=== PATIENT | female | born 1990 | race Caucasian/White ===

== ENCOUNTER 2017-11-24 13:56 | Emergency (ER) | payer OTHER ==
[2017-11-24 15:45] LABS: Appearance,Urine Clear (Clear); Bilirubin,Urine Negative (Negative); Blood,Urine Negative (Negative); Color,Urine Yellow; Glucose,Urine (UA) Negative (Negative); Ketones,Urine Negative (Negative); Leukocyte Esterase,Urine Negative (Negative); Nitrite,Urine Negative (Negative); PH, Urine 5.5 (5.0-8.0); Protein,Urine Negative (Negative); Specific Gravity,Urine 1.008 (1.001-1.035); Urobilinogen,Urine <2.0 mg/dL (<2.0)
[2017-11-24 15:46] LABS: Basophils # (A) 0.1 k/uL (0-0.2); Basophils % (A) 1 %; Eosinophils # (A) 0.1 k/uL (0-0.7); Eosinophils % (A) 1 %; HCT 41.9 % (34.0-46.0); HGB 14.2 gm/dL (11.4-16.0); Lymphocytes # (A) 1.7 k/uL (1.0-4.8); Lymphocytes % (A) 21 %; MCH 32.2 pg (25.0-35.0); MCHC 33.8 g/dL (31.0-37.0); MCV 95.5 fL (80.0-100.0); Monocytes # (A) 0.5 k/uL (0-1.0); Monocytes % (A) 7 %; Neutrophils # (A) 5.6 k/uL (1.3-7.7); Neutrophils % (A) 69 %; Platelet Count 235 k/uL (150-450); RBC 4.39 m/uL (3.80-5.40); RDW 13.5 % (11.5-15.5); WBC 8.2 k/uL (3.8-10.6)
[2017-11-24 15:51] LABS: ALT 32 U/L (9-52); AST 24 U/L (14-36); Albumin 4.3 g/dL (3.5-5.0); Alkaline Phosphatase 75 U/L (38-126); Anion Gap 12 mmol/L; Blood Urea Nitrogen 9 mg/dL (7-17); Calcium 9.4 mg/dL (8.4-10.2); Carbon Dioxide 22 mmol/L (22-30); Chloride 107 mmol/L (98-107); Glucose 90 mg/dL (74-99); Potassium 4.3 mmol/L (3.5-5.1); Sodium 141 mmol/L (137-145); Total Bilirubin 0.5 mg/dL (0.2-1.3)
[2017-11-24 15:52] LABS: Partial Thromboplastin Time 24.7 sec (22.0-30.0)
--- NOTE | 2017-11-24 16:59 | US ---
EXAMINATION TYPE: Transabdominal DATE OF EXAM: 10/25/17 COMPARISON: NONE CLINICAL HISTORY: Patient 6weeks 3 days by LMP, had ultrasound today and [facility] and no IUP could be identified. Patient sent here to rule out ectopic EXAM PERFORMED: Transvaginal (TV) and Transabdominal (TA) EXAM MEASUREMENTS: GESTATIONAL AGE / DATING Physician Established: Not yet established ( weeks/ days) EDC: Dates by LMP: (6 weeks/3 days) EDC: 07/17/18 Dates by First Scan: No previous this is first scan Dates by Current Scan for: Unable to date by today's study MATERNAL ANATOMY Uterus: 7.8 x 4.4 x 4.1cm, endometrium heterogeneous, difficult to ascertain borders, believed to be thickened measuring 2.5cm Right Ovary: 2.3 x 1.7 x 2.1cm Left Ovary: not identified by today's ultrasound Post CDS / Adnexa: wnl Presence of free fluid: no Presence of corpus luteal cyst: no Presence of subchorionic bleed: no GESTATION / SURVEY IUP: No IUP seen at this time Date of LMP: 10/10/17 Beta HcG (if available): 356 Patient of large body habitus. IMPRESSION: Endometrium is difficult to visualized but appear to be heterogeneous. No definite intrauterine pregn boyd. Finding is nonspecific. Correlate with serial beta hCG and pelvic ultrasound. Differential diag nosis would include normal too early to detect. Missed or ectopic also i n the differential diagnosis.
--- NOTE | 2017-11-24 17:12 | ED ---
General Adult HPI - General Chief complaint: Recheck/Abnormal Lab/Rx Stated complaint: poss ectopic Time Seen by Provider: 11/24/17 14:42 Source: patient, RN notes reviewed Mode of arrival: ambulatory Limitations: no limitations - History of Present Illness Initial comments: This a 27-year-old female presents emergency department to complaint of . Patient states that she took a test 3 weeks ago which was positive. She states she did ask he took 6 at that time. She states that she follow-up with an clinic today because she had severe compilations with her first and does not want to be . Patient states she has no abdominal pain, bleeding or cramping at this time. Patient states that they cannot find intrauterine on ultrasound and sent here to rule out ectopic. Patient states that she's had no other prior workup for this . She states her prior was 11 years ago. Patient denies any nausea, vomiting diarrhea constipation. Denies any chest pain. - Related Data Home Medications Medication Instructions Recorded Confirmed No Known Home Medications [No 11/24/17 11/24/17 Known Home Medications] Allergies Allergy/AdvReac Type Severity Reaction Status Date / Time No Known Allergies Allergy Verified 11/24/17 14:39 Review of Systems ROS Statement: Those systems with pertinent positive or pertinent negative responses have been documented in the HPI. ROS Other: All systems not noted in ROS Statement are negative. Past Medical History Past Medical History: No Reported History History of Any Multi-Drug Resistant Organisms: None Reported Past Surgical History: Orthopedic Surgery Past Psychological History: No Psychological Hx Reported Smoking Status: Current every day smoker Past Alcohol Use History: None Reported Past Drug Use History: None Reported General Exam Limitations: no limitations General appearance: alert, in no apparent distress Head exam: Present: atraumatic, normocephalic, normal inspection Eye exam: Present: normal appearance, PERRL, EOMI. Absent: scleral icterus, conjunctival injection, periorbital swelling Respiratory exam: Present: normal lung sounds bilaterally. Absent: respiratory distress, wheezes, rales, rhonchi, stridor Cardiovascular Exam: Present: regular rate, normal rhythm, normal heart sounds. Absent: systolic murmur, diastolic murmur, rubs, gallop, clicks GI/Abdominal exam: Present: soft, normal bowel sounds. Absent: distended, tenderness, guarding, rebound, rigid Back exam: Absent: CVA tenderness (R), CVA tenderness (L) Skin exam: Present: warm, dry, intact, normal color. Absent: rash Course Vital Signs 11/24/17 13:59 Temperature 98.1 F Pulse Rate 99 Respiratory 20 Rate Blood Pressure 145/96 O2 Sat by Pulse 98 Oximetry Medical Decision Making - Medical Decision Making 27-year-old female presented for concerns for possible ectopic. Patient has no abdominal pain, flank pain or back pain. Patient's hCG is currently 350. Patient had ultrasound which did not show IUP though her hCG is only 350. Patient has no pain consistent with ectopic. Patient may be having a missed versus early . Patient will follow-up return parameters were discussed. - Lab Data Result diagrams: 11/24/17 15:11 11/24/17 15:11 Lab Results 11/24/17 11/24/17 11/24/17 Range/Units 15:11 15:11 15:11 WBC 8.2 (3.8-10.6) k/uL RBC 4.39 (3.80-5.40) m/uL Hgb 14.2 (11.4-16.0) gm/dL Hct 41.9 (34.0-46.0) % MCV 95.5 (80.0-100.0) fL MCH 32.2 (25.0-35.0) pg MCHC 33.8 (31.0-37.0) g/dL RDW 13.5 (11.5-15.5) % Plt Count 235 (150-450) k/uL Neutrophils % 69 % Lymphocytes % 21 % Monocytes % 7 % Eosinophils % 1 % Basophils % 1 % Neutrophils # 5.6 (1.3-7.7) k/uL Lymphocytes # 1.7 (1.0-4.8) k/uL Monocytes # 0.5 (0-1.0) k/uL Eosinophils # 0.1 (0-0.7) k/uL Basophils # 0.1 (0-0.2) k/uL PT (9.0-12.0) sec INR (<1.2) APTT (22.0-30.0) sec Sodium 141 (137-145) mmol/L Potassium 4.3 (3.5-5.1) mmol/L Chloride 107 (98-107) mmol/L Carbon Dioxide 22 (22-30) mmol/L Anion Gap 12 mmol/L BUN 9 (7-17) mg/dL Creatinine 0.96 (0.52-1.04) mg/dL Est GFR (CKD-EPI)AfAm >90 (>60 ml/min/1.73 sqM) Est GFR (CKD-EPI)NonAf 81 (>60 ml/min/1.73 sqM) Glucose 90 (74-99) mg/dL Calcium 9.4 (8.4-10.2) mg/dL Total Bilirubin 0.5 (0.2-1.3) mg/dL AST 24 (14-36) U/L ALT 32 (9-52) U/L Alkaline Phosphatase 75 (38-126) U/L Total Protein 7.0 (6.3-8.2) g/dL Albumin 4.3 (3.5-5.0) g/dL HCG, Quant mIU/mL Urine Color Urine Appearance (Clear) Urine pH (5.0-8.0) Ur Specific [place] (1.001-1.035) Urine Protein (Negative) Urine Glucose (UA) (Negative) Urine Ketones (Negative) Urine Blood (Negative) Urine Nitrite (Negative) Urine Bilirubin (Negative) Urine Urobilinogen (<2.0) mg/dL Ur Leukocyte Esterase (Negative) Blood Type O Positive Blood Type Recheck No 11/24/17 11/24/17 11/24/17 Range/Units 15:11 15:11 15:11 WBC (3.8-10.6) k/uL RBC (3.80-5.40) m/uL Hgb (11.4-16.0) gm/dL Hct (34.0-46.0) % MCV (80.0-100.0) fL MCH (25.0-35.0) pg MCHC (31.0-37.0) g/dL RDW (11.5-15.5) % Plt Count (150-450) k/uL Neutrophils % % Lymphocytes % % Monocytes % % Eosinophils % % Basophils % % Neutrophils # (1.3-7.7) k/uL Lymphocytes # (1.0-4.8) k/uL Monocytes # (0-1.0) k/uL Eosinophils # (0-0.7) k/uL Basophils # (0-0.2) k/uL PT 10.0 (9.0-12.0) sec INR 1.0 (<1.2) APTT 24.7 (22.0-30.0) sec Sodium (137-145) mmol/L Potassium (3.5-5.1) mmol/L Chloride (98-107) mmol/L Carbon Dioxide (22-30) mmol/L Anion Gap mmol/L BUN (7-17) mg/dL Creatinine (0.52-1.04) mg/dL Est GFR (CKD-EPI)AfAm (>60 ml/min/1.73 sqM) Est GFR (CKD-EPI)NonAf (>60 ml/min/1.73 sqM) Glucose (74-99) mg/dL Calcium (8.4-10.2) mg/dL Total Bilirubin (0.2-1.3) mg/dL AST (14-36) U/L ALT (9-52) U/L Alkaline Phosphatase (38-126) U/L Total Protein (6.3-8.2) g/dL Albumin (3.5-5.0) g/dL HCG, Quant 356.9 mIU/mL Urine Color Yellow Urine Appearance Clear (Clear) Urine pH 5.5 (5.0-8.0) Ur Specific [place] 1.008 (1.001-1.035) Urine Protein Negative (Negative) Urine Glucose (UA) Negative (Negative) Urine Ketones Negative (Negative) Urine Blood Negative (Negative) Urine Nitrite Negative (Negative) Urine Bilirubin Negative (Negative) Urine Urobilinogen <2.0 (<2.0) mg/dL Ur Leukocyte Esterase Negative (Negative) Blood Type Blood Type Recheck Disposition Clinical Impression: Disposition: HOME SELF-CARE Condition: Stable Instructions: (ED) Additional Instructions: Please return to the Emergency Department if symptoms worsen or any other concerns. Is patient prescribed a controlled substance at d/c from ED?: No Referrals: Kai Robertson DO [Primary Care Provider] - 1-2 days Time of Disposition: 17:12
[2017-11-24 17:29] VITALS: BP 129/73; PULSE 69; RESP 18; TEMP 97.9
== END 2017-11-24 17:35 | disposition home or self-care (01) ==
LOC: EC 13:56
DX: Z32.01 Encounter for pregnancy test, result positive (principal); O99.330 Smoking (tobacco) complicating pregnancy, unspecified trimester; F17.200 Nicotine dependence, unspecified, uncomplicated; Z3A.00 Weeks of gestation of pregnancy not specified
CPT/HCPCS: 36415; 76801; 76817; 80053; 81003; 84702; 85025; 85610; 85730; 86900; 86901; 99282

== ENCOUNTER → 2017-11-26 | Outpatient (CLI) | payer OTHER | END | disposition home or self-care (01) | LOC: LABMAIN 14:27 | PROVIDERS: ATTEND Internal Medicine | DX: Z53.9 Procedure and treatment not carried out, unspecified reason (principal) ==

== ENCOUNTER 2017-12-10 16:11 | Emergency (ER) | payer OTHER ==
[2017-12-10] MEDS ORDERED: SODIUM CHLORIDE 0.9% 1,000 ML IV STA (16:43)
--- NOTE | 2017-12-10 16:48 | ED ---
Abdominal Pain HPI - General Chief Complaint: Abdominal Pain Stated Complaint: Abd Pain 6 weeks Time Seen by Provider: 12/10/17 16:25 Source: patient Mode of arrival: ambulatory Limitations: no limitations - History of Present Illness Initial Comments: Patient is a 27-year-old female presenting for abdominal pain and vaginal bleeding. She states that she was seen 2 weeks ago because she had a difficult her first time around and found out shortly before this that she was and was seen at a clinic and they were concerned about ectopic . They sent her here and she states that she was told that her beta hCG was 556 and fetus was not visualized. This morning, she started having heavy bleeding as well as abdominal cramping but there is no bleeding now. The cramping is been constant and located in her lower abdomen. She denies any urinary symptoms and vomiting or diarrhea but admits to nausea. 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 Constitutional: Negative for chills, fatigue and fever. HENT: Negative for congestion. Respiratory: Negative for chest tightness, shortness of breath and wheezing. Negative for cough Cardiovascular: Negative for chest pain and palpitations. Gastrointestinal: Positive for abdominal pain and nausea . Negative for abdominal distention, diarrhea, and vomiting. Genitourinary: Negative for dysuria. Positive for vaginal bleeding Musculoskeletal: Negative for back pain, neck pain and neck stiffness. Skin: Negative for color change. Neurological: Negative for dizziness, speech difficulty, weakness and light- headedness. Psychiatric/Behavioral: Negative for agitation and confusion. The patient is not nervous/anxious. ROS Other: All systems not noted in ROS Statement are negative. Past Medical History Past Medical History: No Reported History History of Any Multi-Drug Resistant Organisms: None Reported Past Surgical History: Orthopedic Surgery Past Psychological History: No Psychological Hx Reported Smoking Status: Current every day smoker Past Alcohol Use History: None Reported Past Drug Use History: None Reported General Exam - General Exam Comments Initial Comments: Constitutional: Pt is oriented to person, place, and time. Pt appears well- developed and well-nourished. No distress. HENT: Head: Normocephalic and atraumatic. Eyes: EOM are normal. Neck: Normal range of motion. Neck supple. Cardiovascular: Normal rate, regular rhythm, S1 normal, S2 normal and normal heart sounds. Exam reveals no gallop and no friction rub. No murmur heard. Pulmonary/Chest: Effort normal and breath sounds normal. No tachypnea and no bradypnea. No respiratory distress. No wheezes or rales noted. Abdominal: Soft. Bowel sounds are normal. Pt exhibits no shifting dullness, no distension, no pulsatile liver, no fluid wave, no abdominal bruit and no ascites. There is no tenderness. There is no rigidity, no rebound, no guarding, no tenderness at McBurney's point and negative Loco's sign. Musculoskeletal: Normal range of motion. : Cervical os open approximate 1 cm. There is no adnexal tenderness or significant's cervical motion tenderness. There is mild tenderness to palpation of the suprapubic region on bimanual exam. There is dark blood in the vaginal canal with no evidence of hemorrhage Neurological: Pt is alert and oriented to person, place, and time. No cranial nerve deficit. Skin: Skin is warm and dry. No rash noted. Pt is not diaphoretic. No erythema. No pallor. Psychiatric: Pt has a normal mood and affect. Pt behavior is normal. Thought content normal. Limitations: no limitations Course Vital Signs 12/10/17 12/10/17 12/10/17 16:18 18:58 19:10 Temperature 98.1 F 97.8 F Pulse Rate 82 79 87 Respiratory 20 18 18 Rate Blood Pressure 131/79 112/71 136/72 O2 Sat by Pulse 100 99 99 Oximetry 12/10/17 20:37 Temperature Pulse Rate 84 Respiratory 18 Rate Blood Pressure 145/90 O2 Sat by Pulse 95 Oximetry Medical Decision Making - Medical Decision Making Laboratory studies showed that there was no evidence of leukocytosis and electrolytes were relatively within normal limits. Beta hCG was measured at 3412 and urinalysis was negative for infection. Gestational sac was seen on transvaginal ultrasound with no yolk sac was seen. Vascular flow was seen to both ovaries. Obstetrics on-call was contacted and case was discussed with Dr. Rodriguez. Based on the physical exam findings as well as labs, it was felt that ectopic was less likely. This is discussed with the patient and placement in the Hospital was offered versus follow-up as outpatient and patient elected to see obstetrics doctor within the next 1-2 days. Additionally , it was recommended by OB that the patient come back in 24 hours for repeat beta hCG. Patient was agreeable to do this and given the necessary paperwork. Prior to discharge, the patient was in no acute distress and noted to be resting in bed comfortably. - Lab Data Result diagrams: 12/10/17 17:10 12/10/17 17:10 Lab Results 12/10/17 12/10/17 12/10/17 Range/Units 17:10 17:10 17:10 WBC 7.6 (3.8-10.6) k/uL RBC 4.37 (3.80-5.40) m/uL Hgb 14.1 (11.4-16.0) gm/dL Hct 42.3 (34.0-46.0) % MCV 96.7 (80.0-100.0) fL MCH 32.3 (25.0-35.0) pg MCHC 33.4 (31.0-37.0) g/dL RDW 13.6 (11.5-15.5) % Plt Count 237 (150-450) k/uL Neutrophils % 61 % Lymphocytes % 26 % Monocytes % 7 % Eosinophils % 3 % Basophils % 1 % Neutrophils # 4.6 (1.3-7.7) k/uL Lymphocytes # 2.0 (1.0-4.8) k/uL Monocytes # 0.5 (0-1.0) k/uL Eosinophils # 0.3 (0-0.7) k/uL Basophils # 0.0 (0-0.2) k/uL PT 10.2 (9.0-12.0) sec INR 1.0 (<1.2) APTT 24.7 (22.0-30.0) sec Sodium 142 (137-145) mmol/L Potassium 4.3 (3.5-5.1) mmol/L Chloride 108 H (98-107) mmol/L Carbon Dioxide 22 (22-30) mmol/L Anion Gap 12 mmol/L BUN 11 (7-17) mg/dL Creatinine 0.98 (0.52-1.04) mg/dL Est GFR (CKD-EPI)AfAm >90 (>60 ml/min/1.73 sqM) Est GFR (CKD-EPI)NonAf 79 (>60 ml/min/1.73 sqM) Glucose 83 (74-99) mg/dL Calcium 9.2 (8.4-10.2) mg/dL Magnesium 1.9 (1.6-2.3) mg/dL Total Bilirubin 0.6 (0.2-1.3) mg/dL AST 25 (14-36) U/L ALT 31 (9-52) U/L Alkaline Phosphatase 65 (38-126) U/L Total Protein 6.9 (6.3-8.2) g/dL Albumin 4.3 (3.5-5.0) g/dL Lipase 40 (23-300) U/L HCG, Qual Detected HCG, Quant 3412.0 mIU/mL Urine Color Urine Appearance (Clear) Urine pH (5.0-8.0) Ur Specific [place] (1.001-1.035) Urine Protein (Negative) Urine Glucose (UA) (Negative) Urine Ketones (Negative) Urine Blood (Negative) Urine Nitrite (Negative) Urine Bilirubin (Negative) Urine Urobilinogen (<2.0) mg/dL Ur Leukocyte Esterase (Negative) Urine RBC (0-5) /hpf Urine WBC (0-5) /hpf Ur Squamous Epith Cells (0-4) /hpf Urine Bacteria (None) /hpf Urine Mucus (None) /hpf Blood Type Blood Type Recheck Antibody Screen Spec Expiration Date 12/10/17 12/10/17 Range/Units 17:10 20:39 WBC (3.8-10.6) k/uL RBC (3.80-5.40) m/uL Hgb (11.4-16.0) gm/dL Hct (34.0-46.0) % MCV (80.0-100.0) fL MCH (25.0-35.0) pg MCHC (31.0-37.0) g/dL RDW (11.5-15.5) % Plt Count (150-450) k/uL Neutrophils % % Lymphocytes % % Monocytes % % Eosinophils % % Basophils % % Neutrophils # (1.3-7.7) k/uL Lymphocytes # (1.0-4.8) k/uL Monocytes # (0-1.0) k/uL Eosinophils # (0-0.7) k/uL Basophils # (0-0.2) k/uL PT (9.0-12.0) sec INR (<1.2) APTT (22.0-30.0) sec Sodium (137-145) mmol/L Potassium (3.5-5.1) mmol/L Chloride (98-107) mmol/L Carbon Dioxide (22-30) mmol/L Anion Gap mmol/L BUN (7-17) mg/dL Creatinine (0.52-1.04) mg/dL Est GFR (CKD-EPI)AfAm (>60 ml/min/1.73 sqM) Est GFR (CKD-EPI)NonAf (>60 ml/min/1.73 sqM) Glucose (74-99) mg/dL Calcium (8.4-10.2) mg/dL Magnesium (1.6-2.3) mg/dL Total Bilirubin (0.2-1.3) mg/dL AST (14-36) U/L ALT (9-52) U/L Alkaline Phosphatase (38-126) U/L Total Protein (6.3-8.2) g/dL Albumin (3.5-5.0) g/dL Lipase (23-300) U/L HCG, Qual HCG, Quant mIU/mL Urine Color Yellow Urine Appearance Clear (Clear) Urine pH 5.5 (5.0-8.0) Ur Specific [place] 1.027 (1.001-1.035) Urine Protein Negative (Negative) Urine Glucose (UA) Negative (Negative) Urine Ketones 1+ H (Negative) Urine Blood Small H (Negative) Urine Nitrite Negative (Negative) Urine Bilirubin Negative (Negative) Urine Urobilinogen 2.0 (<2.0) mg/dL Ur Leukocyte Esterase Negative (Negative) Urine RBC 1 (0-5) /hpf Urine WBC <1 (0-5) /hpf Ur Squamous Epith Cells <1 (0-4) /hpf Urine Bacteria Rare H (None) /hpf Urine Mucus Occasional H (None) /hpf Blood Type O Positive Blood Type Recheck No Antibody Screen NEGATIVE Spec Expiration Date 12/13/2017 - 2310 Disposition Clinical Impression: Vaginal bleeding during Disposition: HOME SELF-CARE Condition: Good Instructions: Ectopic (ED), Threatened Miscarriage (ED) Is patient prescribed a controlled substance at d/c from ED?: No Referrals: Kai Robertson DO [Primary Care Provider] - 1-2 days Yanique Rodriguez DO [Doctor of Osteopathic Medicine] - 1-2 days Time of Disposition: 20:26
[2017-12-10 17:38] LABS: HCG,Qualitative Serum Detected
[2017-12-10 17:42] LABS: ALT 31 U/L (9-52); AST 25 U/L (14-36); Albumin 4.3 g/dL (3.5-5.0); Alkaline Phosphatase 65 U/L (38-126); Anion Gap 12 mmol/L; Blood Urea Nitrogen 11 mg/dL (7-17); Calcium 9.2 mg/dL (8.4-10.2); Carbon Dioxide 22 mmol/L (22-30); Chloride 108 mmol/L (98-107); Glucose 83 mg/dL (74-99); Lipase 40 U/L (23-300); Magnesium 1.9 mg/dL (1.6-2.3); Potassium 4.3 mmol/L (3.5-5.1); Sodium 142 mmol/L (137-145); Total Bilirubin 0.6 mg/dL (0.2-1.3); Total Protein 6.9 g/dL (6.3-8.2)
[2017-12-10 17:50] LABS: Basophils % (A) 1 %; Eosinophils # (A) 0.3 k/uL (0-0.7); Eosinophils % (A) 3 %; HCT 42.3 % (34.0-46.0); HGB 14.1 gm/dL (11.4-16.0); Lymphocytes % (A) 26 %; MCH 32.3 pg (25.0-35.0); MCHC 33.4 g/dL (31.0-37.0); MCV 96.7 fL (80.0-100.0); Mean Platelet Volume 7.2; Monocytes # (A) 0.5 k/uL (0-1.0); Monocytes % (A) 7 %; Neutrophils # (A) 4.6 k/uL (1.3-7.7); Neutrophils % (A) 61 %; Platelet Count 237 k/uL (150-450); RBC 4.37 m/uL (3.80-5.40); RDW 13.6 % (11.5-15.5); WBC 7.6 k/uL (3.8-10.6)
[2017-12-10 17:52] LABS: Partial Thromboplastin Time 24.7 sec (22.0-30.0); Prothrombin Time 10.2 sec (9.0-12.0)
--- NOTE | 2017-12-10 18:12 | US ---
EXAMINATION TYPE: Transabdominal DATE OF EXAM: 10/25/17 COMPARISON: CLINICAL HISTORY: Pain. Bleeding. Right side pain. Per physician ovarian flow also EXAM PERFORMED: Transvaginal (TV) and Transabdominal (TA), endovaginal scanning performed for better evaluation of the endometrium. EXAM MEASUREMENTS: GESTATIONAL AGE / DATING Dates by LMP: (4 weeks/2 days) EDC: 08/17/2018 Dates by First Scan: To early to date Dates by Current Scan for: Unable to date by today's study MATERNAL ANATOMY Uterus: 8.3 x 4.7 x 4.2 cm Right Ovary: 3.0 x 1.8 x 1.7 cm Left Ovary: 2.1 x 1.2 x 1.3 cm Post CDS / Adnexa: no free fluid Presence of free fluid: no Presence of corpus luteal cyst: Echogenic lesion seen with peripheral vascular flow = 1.7 x 1.0 x 1.6 cm Presence of subchorionic bleed: no GESTATION / SURVEY CRL: no CRL seen MSD: 0.6 cm (Too small to date) IUP: No IUP seen at this time Date of LMP: 11/10/2017, Beta HcG (if available): Not available at this time GS seen. YS and CRL not visualized. Too early to determine dates by gestational sac. Vascular flow seen in both ovaries Grayscale, color Doppler, spectral Doppler imaging performed of the ovaries, color flow and vascular waveforms are noted ovaries IMPRESSION: Findings may represent an early gestation. No evident ovarian torsion.
[2017-12-10 19:00] VITALS: RESP 18; TEMP 97.8
[2017-12-10 20:38] VITALS: BP 145/90; PULSE 84
[2017-12-10 21:01] LABS: Appearance,Urine Clear (Clear); Bacteria,Urine Rare /hpf; Bilirubin,Urine Negative (Negative); Blood,Urine Small (Negative); Color,Urine Yellow; Glucose,Urine (UA) Negative (Negative); Ketones,Urine 1+ (Negative); Leukocyte Esterase,Urine Negative (Negative); Mucus,Urine Occasional /hpf; Nitrite,Urine Negative (Negative); PH, Urine 5.5 (5.0-8.0); Protein,Urine Negative (Negative); RBC,Urine 1 /hpf (0-5); Specific Gravity,Urine 1.027 (1.001-1.035); Squamous Epithelial Cell,Urine <1 /hpf (0-4); WBC,Urine <1 /hpf (0-5)
== END 2017-12-10 20:47 | disposition home or self-care (01) ==
LOC: EC 16:11
DX: O20.9 Hemorrhage in early pregnancy, unspecified (principal); O26.891 Other specified pregnancy related conditions, first trimester; O99.331 Smoking (tobacco) complicating pregnancy, first trimester; F17.200 Nicotine dependence, unspecified, uncomplicated; Z3A.01 Less than 8 weeks gestation of pregnancy
CPT/HCPCS: 36415; 76801; 76817; 80053; 81001; 83690; 83735; 84702; 84703; 85025; 85610; 85730; 86850; 86900; 86901; 93975; 96360; 96361; 99284

== ENCOUNTER → 2017-12-11 | Outpatient (CLI) | payer OTHER | END | disposition home or self-care (01) | LOC: LABMAIN 12:42 | PROVIDERS: ATTEND Emergency Medicine | DX: O20.0 Threatened abortion (principal); Z3A.00 Weeks of gestation of pregnancy not specified | CPT/HCPCS: 36415; 84702 ==

== ENCOUNTER → 2017-12-14 | Outpatient (CLI) | payer OTHER | END | disposition home or self-care (01) | LOC: LABWHC1 12:28 | PROVIDERS: ATTEND Obstetrics & Gynecology Obstetrics | DX: O20.0 Threatened abortion (principal); Z3A.00 Weeks of gestation of pregnancy not specified | CPT/HCPCS: 36415; 84702 ==

== ENCOUNTER 2018-04-05 17:21 | Emergency (ER) | payer OTHER ==
[2018-04-05 17:26] VITALS: RESP 18
[2018-04-05] MEDS ORDERED: SODIUM CHLORIDE 0.9% 500 ML IV STA (17:51)
[2018-04-05] MEDS ORDERED: diphenhydrAMINE 50 MG CAP PO STA (17:51)
[2018-04-05] MEDS ORDERED: methylPREDNISolone SOD SUCCI 125 MG/2 ML VIAL IV STA (17:51)
[2018-04-05] MEDS ORDERED: FAMOTIDINE 20 MG/2 ML VIAL IV STA (17:51)
[2018-04-05] MEDS ORDERED: LORazepam 1 MG TAB PO STA (17:53)
--- NOTE | 2018-04-05 17:55 | ED ---
Allergic Reaction HPI - General Chief complaint: Allergic Reaction Stated complaint: allergic reaction Time Seen by Provider: 04/05/18 17:29 Source: patient, RN notes reviewed, old records reviewed Mode of arrival: ambulatory Limitations: no limitations - History of Present Illness Initial Comments: 28-year-old female presents emergency department today with chief complaint of ALLERGIC reaction. Patient reports that she had increased her Wellbutrin dose last week. She reports that she was seen in the emergency department 2 days after increasing her Wellbutrin and was started on steroids and Benadryl and Pepcid due to hives on her arms. Patient reports she is extremely pruritic. She reports that she is getting a worsening rash over her hands. She states that the medications are helping. She denies any other complaints at this time. - Related Data Home Medications Medication Instructions Recorded Confirmed Fluticasone Nasal [place] [Flonase 1 spray EA NOSTRIL DAILY PRN 04/03/18 04/05/18 Nasal [place]] Sertraline [Zoloft] 50 mg PO DAILY 04/03/18 04/05/18 Previous Rx's Medication Instructions Recorded Famotidine [Pepcid] 20 mg PO BID #20 tablet 04/03/18 diphenhydrAMINE [Benadryl] 1 - 2 tab PO Q6HR PRN #30 capsule 04/03/18 predniSONE 50 mg PO DAILY #5 tab 04/03/18 Hydrocortisone Cream 1 applic TOPICAL QID #60 gm 04/05/18 [Hydrocortisone 1% Cream] hydrOXYzine HCL [Atarax] 25 mg PO QID PRN #20 tab 04/05/18 predniSONE 60 mg PO DAILY #12 tab 04/05/18 Allergies Allergy/AdvReac Type Severity Reaction Status Date / Time acetaminophen [From [place]] Allergy Unknown Verified 04/05/18 17:32 bupropion Allergy Rash/Hives Verified 04/05/18 17:32 [From Wellbutrin SR] codeine Allergy Rash/Hives Verified 04/05/18 17:32 hydrocodone [From [place]] Allergy Unknown Verified 04/05/18 17:32 latex Allergy Rash/Hives Verified 04/05/18 17:32 Review of Systems ROS Statement: Those systems with pertinent positive or pertinent negative responses have been documented in the HPI. ROS Other: All systems not noted in ROS Statement are negative. Past Medical History Past Medical History: No Reported History History of Any Multi-Drug Resistant Organisms: None Reported Past Surgical History: Orthopedic Surgery Past Psychological History: Depression Smoking Status: Current every day smoker Past Alcohol Use History: Occasional Past Drug Use History: Marijuana General Exam - General Exam Comments Initial Comments: 28-year-old female. Alert and oriented. No significant distress. Limitations: no limitations Head exam: Present: atraumatic, normocephalic, normal inspection Eye exam: Present: normal appearance, PERRL, EOMI. Absent: scleral icterus, conjunctival injection, periorbital swelling ENT exam: Present: normal exam, mucous membranes moist Neck exam: Present: normal inspection. Absent: tenderness, meningismus, lymphadenopathy Respiratory exam: Present: normal lung sounds bilaterally. Absent: respiratory distress, wheezes, rales, rhonchi, stridor Cardiovascular Exam: Present: regular rate, normal rhythm, normal heart sounds. Absent: systolic murmur, diastolic murmur, rubs, gallop, clicks GI/Abdominal exam: Present: soft, normal bowel sounds. Absent: distended, tenderness, guarding, rebound, rigid Extremities exam: Present: normal inspection, full ROM, normal capillary refill. Absent: tenderness, pedal edema, joint swelling, calf tenderness Back exam: Present: normal inspection Neurological exam: Present: alert, oriented X3, CN II-XII intact Psychiatric exam: Present: normal affect, normal mood Skin exam: Present: warm, dry, intact, normal color, rash (Patient is urticarial like rash over her axilla forearms and hands. She has some evidence of rash on her back or legs as well. Patient has evidence of excoriations over her arms legs.) Course Vital Signs 04/05/18 04/05/18 04/05/18 17:23 18:34 18:42 Temperature 97.9 F Pulse Rate 93 77 Respiratory 18 18 18 Rate Blood Pressure 123/69 123/65 O2 Sat by Pulse 98 98 Oximetry Medical Decision Making - Medical Decision Making patient's age 28-year-old female chief complaint of pruritic rash after taking Wellbutrin she's discontinue this time. She's been having a rash past 4 days. No improvement with the [id number] medications and Pepcid and Benadryl at this time steroid. Patient was given a steroid dose, Benadryl Pepcid and Ativan due to anxiety emergency department. Some research of this, the Patient has pressured she has no signs of rash or or blistering over oropharynx. Very low suspicion for STO syndrome. Patient will increase her steroid dose of Claritin kathie. I discussed that she should continues dehydrated. Discussed return parameters. All questions answered and return parameters were discussed. Disposition Clinical Impression: Allergic reaction, Adverse reaction to drug Disposition: HOME SELF-CARE Condition: Good Instructions: General Allergic Reaction (ED) Additional Instructions: Patient advised to make sure to eat plenty of fluids. It could be. Days until the symptoms resolve. Up the steroids as directed. Patient can apply the steroid cream over the areas of itching. Prescriptions: Hydrocortisone Cream [Hydrocortisone 1% Cream] 1 applic TOPICAL QID #60 gm hydrOXYzine HCL [Atarax] 25 mg PO QID PRN #20 tab PRN Reason: Itching predniSONE 60 mg PO DAILY #12 tab Is patient prescribed a controlled substance at d/c from ED?: No Referrals: Jefferson Griffith MD [Primary Care Provider] - 1-2 days Time of Disposition: 18:52
[2018-04-05 19:46] VITALS: BP 127/63; PULSE 57; TEMP 99
== END 2018-04-05 19:43 | disposition home or self-care (01) ==
LOC: EC 17:21
DX: S40.812A Abrasion of left upper arm, initial encounter (principal); S40.811A Abrasion of right upper arm, initial encounter; S80.812A Abrasion, left lower leg, initial encounter; S80.811A Abrasion, right lower leg, initial encounter; T43.295A Adverse effect of other antidepressants, initial encounter; R21 Rash and other nonspecific skin eruption; F32.9 Major depressive disorder, single episode, unspecified; F17.200 Nicotine dependence, unspecified, uncomplicated; Z88.5 Allergy status to narcotic agent; Z88.6 Allergy status to analgesic agent; Z88.8 Allergy status to other drugs, medicaments and biological substances; Z91.040 Latex allergy status; Z79.899 Other long term (current) drug therapy; X58.XXXA Exposure to other specified factors, initial encounter
CPT/HCPCS: 99283; 96374; 96375; 96361; J2930

== ENCOUNTER 2020-07-14 05:05 | Emergency (ER) | payer OTHER ==
[2020-07-14 05:59] LABS: Basophils # (A) 0.1 k/uL (0-0.2); Basophils % (A) 1 %; Eosinophils # (A) 0.4 k/uL (0-0.7); Eosinophils % (A) 5 %; HGB 15.1 gm/dL (11.4-16.0); Lymphocytes % (A) 32 %; MCH 33.3 pg (25.0-35.0); MCHC 33.6 g/dL (31.0-37.0); Mean Platelet Volume 7.3; Monocytes # (A) 0.6 k/uL (0-1.0); Monocytes % (A) 6 %; Neutrophils # (A) 5.2 k/uL (1.3-7.7); Neutrophils % (A) 55 %; Platelet Count 243 k/uL (150-450); RBC 4.55 m/uL (3.80-5.40); RDW 12.9 % (11.5-15.5); WBC 9.5 k/uL (3.8-10.6)
--- NOTE | 2020-07-14 05:59 | ED ---
Headache HPI - General Chief Complaint: Upper Respiratory Infection Stated Complaint: Congested, Headache Time Seen by Provider: 07/14/20 05:20 Source: patient Mode of arrival: ambulatory Limitations: no limitations - History of Present Illness Initial Comments: This patient is a 30-year-old woman with history of previous sinus infections to presents with what she believes is a recurrence, though she states this is the worst one ever. She states that approximately 2-3 weeks ago she noticed that she was having congestion and postnasal drainage. She was having rhinorrhea and a little bit of cough. Over the past week or so she has had right frontal and right retro-orbital pressure type pain. She has not had any fever or chills. No neck stiffness. No neurologic symptoms. No change in her vision. MD Complaint: headache -: week(s) Onset Description: gradual Location: right, frontal Severity: severe Quality: aching, constant, worst headache of life Consistency: constant Improves With: nothing Worsens With: none Other Symptoms: cough Treatments Prior to Arrival: none - Related Data Home Medications Medication Instructions Recorded Confirmed Fluticasone Nasal [place] [Flonase 1 spray EA NOSTRIL DAILY PRN 04/03/18 04/05/18 Nasal [place]] Sertraline [Zoloft] 50 mg PO DAILY 04/03/18 04/05/18 Previous Rx's Medication Instructions Recorded Famotidine [Pepcid] 20 mg PO BID #20 tablet 04/03/18 diphenhydrAMINE [Benadryl] 1 - 2 tab PO Q6HR PRN #30 capsule 04/03/18 predniSONE 50 mg PO DAILY #5 tab 04/03/18 Hydrocortisone Cream 1 applic TOPICAL QID #60 gm 04/05/18 [Hydrocortisone 1% Cream] hydrOXYzine HCL [Atarax] 25 mg PO QID PRN #20 tab 04/05/18 predniSONE [Deltasone] 60 mg PO DAILY #12 tab 04/05/18 Amoxic-Pot Clav 875-125Mg 1 tab PO Q12HR 1 Days #14 tab 07/14/20 [Augmentin 875-125] Fluticasone Nasal [place] [Flonase 2 spr EA NOSTRIL DAILY #1 bottle 07/14/20 Nasal [place]] Allergies Allergy/AdvReac Type Severity Reaction Status Date / Time acetaminophen [From [place]] Allergy Unknown Verified 07/14/20 05:15 bupropion Allergy Rash/Hives Verified 07/14/20 05:15 [From Wellbutrin SR] codeine Allergy Rash/Hives Verified 07/14/20 05:15 hydrocodone [From [place]] Allergy Unknown Verified 07/14/20 05:15 latex Allergy Rash/Hives Verified 07/14/20 05:15 Review of Systems ROS Statement: Those systems with pertinent positive or pertinent negative responses have been documented in the HPI. ROS Other: All systems not noted in ROS Statement are negative. Constitutional: Denies: fever, chills Eyes: Denies: eye pain, vision change ENT: Reports: congestion. Denies: ear pain, throat pain Respiratory: Reports: cough. Denies: dyspnea, wheezes, hemoptysis Cardiovascular: Denies: chest pain, syncope Gastrointestinal: Denies: abdominal pain, nausea, vomiting Skin: Denies: rash Neurological: Reports: as per HPI, headache. Denies: weakness, numbness, paresthesias, confusion, vertigo Past Medical History Past Medical History: No Reported History History of Any Multi-Drug Resistant Organisms: None Reported Past Surgical History: Orthopedic Surgery Past Psychological History: Depression Smoking Status: Current every day smoker Past Alcohol Use History: None Reported, Occasional Past Drug Use History: Marijuana General Exam Limitations: no limitations General appearance: alert, in no apparent distress Head exam: Present: atraumatic, normocephalic Eye exam: Present: normal appearance, PERRL, EOMI. Absent: scleral icterus, conjunctival injection, nystagmus, periorbital swelling, periorbital tenderness ENT exam: Present: normal oropharynx, mucous membranes moist, TM's normal bilaterally, normal external ear exam Neck exam: Present: normal inspection, full ROM. Absent: tenderness, men ingismus, lymphadenopathy Respiratory exam: Present: normal lung sounds bilaterally. Absent: respiratory distress, wheezes, rales, rhonchi, stridor Cardiovascular Exam: Present: regular rate, normal rhythm, normal heart sounds GI/Abdominal exam: Present: soft. Absent: distended, tenderness, guarding, rebound, rigid, mass Neurological exam: Present: alert, oriented X3, CN II-XII intact. Absent: motor sensory deficit Skin exam: Present: warm, dry, intact, normal color. Absent: rash Course Vital Signs 12/21/20 12/21/20 05:11 06:14 Temperature 99.3 F Pulse Rate 91 73 Respiratory 20 16 Rate Blood Pressure 146/86 132/87 O2 Sat by Pulse 99 97 Oximetry Medical Decision Making - Lab Data Result diagrams: 07/14/20 05:46 07/14/20 05:46 Lab Results 07/14/20 07/14/20 Range/Units 05:46 05:46 WBC 9.5 (3.8-10.6) k/uL RBC 4.55 (3.80-5.40) m/uL Hgb 15.1 (11.4-16.0) gm/dL Hct 45.0 (34.0-46.0) % MCV 99.0 (80.0-100.0) fL MCH 33.3 (25.0-35.0) pg MCHC 33.6 (31.0-37.0) g/dL RDW 12.9 (11.5-15.5) % Plt Count 243 (150-450) k/uL MPV 7.3 Neutrophils % 55 % Lymphocytes % 32 % Monocytes % 6 % Eosinophils % 5 % Basophils % 1 % Neutrophils # 5.2 (1.3-7.7) k/uL Lymphocytes # 3.0 (1.0-4.8) k/uL Monocytes # 0.6 (0-1.0) k/uL Eosinophils # 0.4 (0-0.7) k/uL Basophils # 0.1 (0-0.2) k/uL ESR 10 (0-20) mm/hr Sodium 139 (137-145) mmol/L Potassium 4.4 (3.5-5.1) mmol/L Chloride 110 H (98-107) mmol/L Carbon Dioxide 21 L (22-30) mmol/L Anion Gap 8 mmol/L BUN 14 (7-17) mg/dL Creatinine 1.07 H (0.52-1.04) mg/dL Est GFR (CKD-EPI)AfAm 80 (>60 ml/min/1.73 sqM) Est GFR (CKD-EPI)NonAf 70 (>60 ml/min/1.73 sqM) Glucose 109 H (74-99) mg/dL Calcium 9.1 (8.4-10.2) mg/dL Disposition Clinical Impression: Sinusitis Disposition: HOME SELF-CARE Condition: Good Instructions (If sedation given, give patient instructions): Sinusitis (ED) Prescriptions: Amoxic-Pot Clav 875-125Mg [Augmentin 875-125] 1 tab PO Q12HR 1 Days #14 tab Fluticasone Nasal [place] [Flonase Nasal [place]] 2 spr EA NOSTRIL DAILY #1 bottle Is patient prescribed a controlled substance at d/c from ED?: No Referrals: Jefferson Griffith MD [Primary Care Provider] - 1-2 days
[2020-07-14 06:08] LABS: Calcium 9.1 mg/dL (8.4-10.2)
--- NOTE | 2020-07-14 06:10 | CT ---
EXAM: CT Head Without Intravenous Contrast CLINICAL HISTORY: acute headache TECHNIQUE: Axial computed tomography images of the head/brain without intravenous contrast. CTDI is 49.27 mGy and DLP is 1031.4 mGy-cm. This CT exam was performed using one or more of the following dose reduction techniques: automated exposure control, adjustment of the mA and/or kV according to patient size, and/or use of iterative reconstruction technique. COMPARISON: No relevant prior studies available. FINDINGS: Brain: Unremarkable. No hemorrhage. No significant white matter disease. No edema. Ventricles: Unremarkable. No ventriculomegaly. Bones/joints: Unremarkable. No acute fracture. Soft tissues: Unremarkable. Sinuses: Partial opacification of the bilateral ethmoid air cells with mild mucosal thickening of both frontal sinuses. Mastoid air cells: Unremarkable as visualized. No mastoid effusion. IMPRESSION: 1. No CT evidence of acute intracranial pathology. 2. Mild paranasal sinus disease, as above.
[2020-07-14] MEDS ORDERED: METOCLOPRAMIDE 5 MG/ML 2 ML VIAL IVP STA (06:12)
[2020-07-14 06:13] LABS: Potassium 4.4 mmol/L (3.5-5.1)
[2020-07-14] MEDS ORDERED: SODIUM CHLORIDE 0.9% 1,000 ML IV ONE (06:13)
[2020-07-14] MEDS ORDERED: KETOROLAC 15 MG/ML 1 ML VIAL IVP STA (06:13)
[2020-07-14 06:37] LABS: Erythrocyte Sedimentation Rate 10 mm/hr (0-20)
[2020-07-14] MEDS ORDERED: AMOXIC-POT CLAV 875MG STARTER PACK 2 TAB BTL PO STA (07:23)
[2020-07-14 07:25] VITALS: BP 131/83; PULSE 82; RESP 18; TEMP 98.8
== END 2020-07-14 07:26 | disposition home or self-care (01) ==
LOC: EC 05:05
DX: J32.9 Chronic sinusitis, unspecified (principal); F32.9 Major depressive disorder, single episode, unspecified; F17.200 Nicotine dependence, unspecified, uncomplicated; Z79.899 Other long term (current) drug therapy; Z88.6 Allergy status to analgesic agent; Z88.5 Allergy status to narcotic agent; Z91.040 Latex allergy status; Z88.8 Allergy status to other drugs, medicaments and biological substances
CPT/HCPCS: 36415; 80048; 85652; 85025; 70450; 99284; 96374; 96375; 96361; J2765; J1885

== ENCOUNTER 2020-07-20 04:25 | Emergency (ER) | payer OTHER ==
[2020-07-20 04:40] VITALS: RESP 18; TEMP 97.3
[2020-07-20] MEDS ORDERED: SODIUM CHLORIDE 0.9% 1,000 ML IV ONE (04:52)
[2020-07-20] MEDS ORDERED: KETOROLAC 15 MG/ML 1 ML VIAL IVP STA (04:52)
[2020-07-20] MEDS ORDERED: METOCLOPRAMIDE 5 MG/ML 2 ML VIAL IVP STA (04:52)
--- NOTE | 2020-07-20 05:09 | ED ---
Headache HPI - General Chief Complaint: Headache Stated Complaint: Headache Time Seen by Provider: 07/20/20 04:30 Mode of arrival: ambulatory Limitations: no limitations - History of Present Illness MD Complaint: "migraine" -: hour(s) Onset Description: gradual Location: right, retro-orbital Severity: severe Quality: aching, throbbing Consistency: constant Improves With: nothing Worsens With: light Context: occurred at rest Associated Symptoms: nausea Treatments Prior to Arrival: none - Related Data Home Medications Medication Instructions Recorded Confirmed Fluticasone Nasal [place] [Flonase 1 spray EA NOSTRIL DAILY PRN 04/03/18 04/05/18 Nasal [place]] Sertraline [Zoloft] 50 mg PO DAILY 04/03/18 04/05/18 Previous Rx's Medication Instructions Recorded Famotidine [Pepcid] 20 mg PO BID #20 tablet 04/03/18 diphenhydrAMINE [Benadryl] 1 - 2 tab PO Q6HR PRN #30 capsule 04/03/18 predniSONE 50 mg PO DAILY #5 tab 04/03/18 Hydrocortisone Cream 1 applic TOPICAL QID #60 gm 04/05/18 [Hydrocortisone 1% Cream] hydrOXYzine HCL [Atarax] 25 mg PO QID PRN #20 tab 04/05/18 predniSONE [Deltasone] 60 mg PO DAILY #12 tab 04/05/18 Amoxic-Pot Clav 875-125Mg 1 tab PO Q12HR 1 Days #14 tab 07/14/20 [Augmentin 875-125] Fluticasone Nasal [place] [Flonase 2 spr EA NOSTRIL DAILY #1 bottle 07/14/20 Nasal [place]] SUMAtriptan succinate [Imitrex] 25 mg PO ONCE PRN #8 tablet 07/20/20 Allergies Allergy/AdvReac Type Severity Reaction Status Date / Time acetaminophen [From [place]] Allergy Unknown Verified 07/20/20 04:40 bupropion Allergy Rash/Hives Verified 07/20/20 04:40 [From Wellbutrin SR] codeine Allergy Rash/Hives Verified 07/20/20 04:40 hydrocodone [From [place]] Allergy Unknown Verified 07/20/20 04:40 latex Allergy Rash/Hives Verified 07/20/20 04:40 Review of Systems ROS Statement: Those systems with pertinent positive or pertinent negative responses have been documented in the HPI. ROS Other: All systems not noted in ROS Statement are negative. Constitutional: Denies: fever, chills Eyes: Denies: eye pain, vision change ENT: Denies: ear pain, hearing loss, epistaxis Respiratory: Denies: cough, dyspnea Cardiovascular: Denies: chest pain, syncope Gastrointestinal: Reports: nausea. Denies: abdominal pain, vomiting Musculoskeletal: Denies: back pain Skin: Denies: rash Neurological: Reports: headache. Denies: weakness, numbness, paresthesias, confusion, abnormal gait, vertigo Past Medical History Past Medical History: No Reported History History of Any Multi-Drug Resistant Organisms: None Reported Past Surgical History: Section, Orthopedic Surgery Past Psychological History: Depression Smoking Status: Current every day smoker Past Alcohol Use History: None Reported Past Drug Use History: Marijuana General Exam Limitations: no limitations General appearance: alert, in no apparent distress Head exam: Present: atraumatic, normocephalic Eye exam: Present: normal appearance, PERRL, EOMI. Absent: scleral icterus, conjunctival injection, nystagmus ENT exam: Present: normal oropharynx Neck exam: Present: normal inspection, full ROM. Absent: meningismus Respiratory exam: Present: normal lung sounds bilaterally. Absent: respiratory distress, wheezes, rales, rhonchi, stridor Cardiovascular Exam: Present: regular rate, normal rhythm, normal heart sounds. Absent: systolic murmur, diastolic murmur, rubs, gallop Neurological exam: Present: alert, oriented X3, CN II-XII intact. Absent: motor sensory deficit Skin exam: Present: warm, dry, intact, normal color. Absent: rash Course Vital Signs 07/20/20 07/20/20 04:35 07:05 Temperature 97.3 F L Pulse Rate 64 69 Respiratory 18 18 Rate Blood Pressure 138/98 122/81 O2 Sat by Pulse 98 98 Oximetry Disposition Clinical Impression: Migraine headache Disposition: HOME SELF-CARE Condition: Good Instructions (If sedation given, give patient instructions): Acute Headache (ED) Prescriptions: SUMAtriptan succinate [Imitrex] 25 mg PO ONCE PRN #8 tablet PRN Reason: Headache Is patient prescribed a controlled substance at d/c from ED?: No Referrals: Jefferson Griffith MD [Primary Care Provider] - 1-2 days Lea Perkins MD [REFERRING] - 1-2 days
[2020-07-20] MEDS ORDERED: ONDANSETRON 4 MG/2 ML VIAL IVP STA (05:58)
[2020-07-20] MEDS ORDERED: SUMAtriptan succinate 6 MG/0.5 ML VIAL SQ STA (05:58)
[2020-07-20 07:08] VITALS: BP 122/81; PULSE 69
== END 2020-07-20 07:20 | disposition home or self-care (01) ==
LOC: EC 04:25
DX: G43.909 Migraine, unspecified, not intractable, without status migrainosus (principal); F32.9 Major depressive disorder, single episode, unspecified; F17.200 Nicotine dependence, unspecified, uncomplicated; Z79.899 Other long term (current) drug therapy; Z88.6 Allergy status to analgesic agent; Z88.5 Allergy status to narcotic agent; Z88.8 Allergy status to other drugs, medicaments and biological substances; Z91.040 Latex allergy status
CPT/HCPCS: 99283; 96374; 96375 ×2; 96372; 96361; J3030; J2765; J2405; J1885

== ENCOUNTER 2020-07-22 22:36 | Emergency (ER) | payer OTHER ==
[2020-07-22 22:41] VITALS: BP 155/65; PULSE 83; RESP 20; TEMP 98.9
[2020-07-22] MEDS ORDERED: diazePAM 5 MG TAB PO STA (23:06)
[2020-07-22] MEDS ORDERED: METOCLOPRAMIDE 5 MG/ML 2 ML VIAL IVP STA (23:06)
[2020-07-22] MEDS ORDERED: SODIUM CHLORIDE 0.9% 500 ML 500 ML IV ONE (23:06)
[2020-07-22] MEDS ORDERED: KETOROLAC 15 MG/ML 1 ML VIAL IVP STA (23:07)
--- NOTE | 2020-07-23 00:22 | ED ---
General Adult HPI - General Chief complaint: Headache Stated complaint: Headache, neck pain Time Seen by Provider: 07/22/20 22:59 Source: patient, RN notes reviewed, old records reviewed Mode of arrival: ambulatory Limitations: no limitations - History of Present Illness Initial comments: 30-year-old female patient to ED for evaluation of migraine headache. Patient reports that the headache began around 8:00. Reports that it increased gradually throughout an hour or so. She reports that feels similar to migraine headaches of the past. She reports that her right paraspinal muscle is slightly stiff feeling and she has had a little bit of right-sided otalgia. Denies any loss of consciousness changes in vision or any other red flag symptoms. Patient did recently have a CT brain 9 days ago for a headache which did not display any acute intracranial pathology. She was treated for sinusitis. Denies any chance of . Systemic: Pt denies fatigue, fever/chills, rash. Pt denies weakness, night sweats, weight loss. Neuro: Pt denies headache, visual disturbances, syncope or pre-syncope. HEENT: Pt denies ocular discharge or irritation, otalgia, rhinorrhea, pharyngitis or notable lymphadenopathy. Cardiopulmonary: Pt denies chest pain, SOB, heart palpitations, dyspnea on exertion. Abdominal/GI: Pt denies abdominal pain, n/v/d. : Pt denies dysuria, burning w/ urination, frequency/urgency. Denies new onset urinary or bowel incontinence. MSK: Pt denies myalgia, loss of strength or function in extremities. Neuro: Pt denies new onset weakness, paresthesias. - Related Data Home Medications Medication Instructions Recorded Confirmed Fluticasone Nasal [place] [Flonase 1 spray EA NOSTRIL DAILY PRN 04/03/18 04/05/18 Nasal [place]] Sertraline [Zoloft] 50 mg PO DAILY 04/03/18 04/05/18 Previous Rx's Medication Instructions Recorded Famotidine [Pepcid] 20 mg PO BID #20 tablet 04/03/18 diphenhydrAMINE [Benadryl] 1 - 2 tab PO Q6HR PRN #30 capsule 04/03/18 predniSONE 50 mg PO DAILY #5 tab 04/03/18 Hydrocortisone Cream 1 applic TOPICAL QID #60 gm 04/05/18 [Hydrocortisone 1% Cream] hydrOXYzine HCL [Atarax] 25 mg PO QID PRN #20 tab 04/05/18 predniSONE [Deltasone] 60 mg PO DAILY #12 tab 04/05/18 Amoxic-Pot Clav 875-125Mg 1 tab PO Q12HR 1 Days #14 tab 07/14/20 [Augmentin 875-125] Fluticasone Nasal [place] [Flonase 2 spr EA NOSTRIL DAILY #1 bottle 07/14/20 Nasal [place]] SUMAtriptan succinate [Imitrex] 25 mg PO ONCE PRN #8 tablet 07/20/20 Allergies Allergy/AdvReac Type Severity Reaction Status Date / Time acetaminophen [From [place]] Allergy Unknown Verified 07/22/20 22:42 bupropion Allergy Rash/Hives Verified 07/22/20 22:42 [From Wellbutrin SR] codeine Allergy Rash/Hives Verified 07/22/20 22:42 hydrocodone [From [place]] Allergy Unknown Verified 07/22/20 22:42 latex Allergy Rash/Hives Verified 07/22/20 22:42 Review of Systems ROS Statement: Those systems with pertinent positive or pertinent negative responses have been documented in the HPI. ROS Other: All systems not noted in ROS Statement are negative. Past Medical History Past Medical History: No Reported History Additional Past Medical History / Comment(s): migraines History of Any Multi-Drug Resistant Organisms: None Reported Past Surgical History: Section, Orthopedic Surgery Past Psychological History: Depression Smoking Status: Current every day smoker Past Alcohol Use History: None Reported Past Drug Use History: Marijuana General Exam - General Exam Comments Initial Comments: Constitutional: NAD, AOX3, Pt has pleasant affect. HEENT: NC/AT, trachea midline, neck supple, no lymphadenopathy. External ears appear normal, without discharge. TM pale allen bilaterally. Mucous membranes moist. Eyes PERRLA, EOM intact. There is no scleral icterus. No pallor noted. Cardiopulmonary: RRR, no murmurs, rubs or gallops, no JVD noted. Lungs CTAB in anterior and posterior baez. No peripheral edema. Abdominal exam: Abdomen soft and non-distended. Abdomen non-tender to palpation in all 4 quadrants. Bowel sounds active in LLQ. No hepatosplenomegaly. No ecchymosis Neuro: CN II-XII intact. No nuchal rigidity. No raccon eyes, no sunshine sign, no hemotympanum. No midline cervical spinal tenderness. Very mild right paraspinal tenderness. Kernigs and Brudzinski's negative. MSK: Full active ROM in upper and lower extremities, 5/5 stregnth. Limitations: no limitations Course Vital Signs 07/22/20 22:40 Temperature 98.9 F Pulse Rate 83 Respiratory 20 Rate Blood Pressure 155/65 O2 Sat by Pulse 99 Oximetry Medical Decision Making - Medical Decision Making 30-year-old female patient ED or headache. Patient history analgesia in ED. Discussed management imaging should like to decline. Patient is feeling much improved is requesting discharge. She'll be discharged outpatient follow-up and return precautions. Case discussed with Dr. Estes. Disposition Clinical Impression: Acute headache Disposition: HOME SELF-CARE Condition: Stable Instructions (If sedation given, give patient instructions): Acute Headache (ED) Additional Instructions: Follow up with PCP tomorrow. Return to ED with any worsening symptoms. Is patient prescribed a controlled substance at d/c from ED?: No Referrals: Jefferson Griffith MD [Primary Care Provider] - 1-2 days
== END 2020-07-23 00:43 | disposition home or self-care (01) ==
LOC: EC 22:36
DX: R51.9 Headache, unspecified (principal); M54.2 Cervicalgia; H92.01 Otalgia, right ear; F32.9 Major depressive disorder, single episode, unspecified; F17.200 Nicotine dependence, unspecified, uncomplicated; Z79.899 Other long term (current) drug therapy; Z88.6 Allergy status to analgesic agent; Z88.5 Allergy status to narcotic agent; Z88.8 Allergy status to other drugs, medicaments and biological substances; Z91.040 Latex allergy status
CPT/HCPCS: 99283; 96374; 96375; 96361; J2765; J1885

== ENCOUNTER 2020-08-01 10:28 | Emergency (ER) | payer OTHER ==
[2020-08-01] MEDS ORDERED: diphenhydrAMINE 50 MG/ML 1 ML VIAL IVP STA (10:58)
[2020-08-01] MEDS ORDERED: methylPREDNISolone SOD SUCCI 125 MG/2 ML VIAL IV STA (10:58)
[2020-08-01] MEDS ORDERED: FAMOTIDINE 20 MG/2 ML VIAL IV STA (10:58)
[2020-08-01] MEDS ORDERED: SODIUM CHLORIDE 0.9% 500 ML 500 ML IV ONE (10:58)
--- NOTE | 2020-08-01 12:12 | ED ---
Allergic Reaction HPI - General Chief complaint: Allergic Reaction Stated complaint: Allergic reaction Time Seen by Provider: 08/01/20 10:55 Source: patient Mode of arrival: ambulatory Limitations: no limitations - History of Present Illness Initial Comments: 30 year old feel presenting today for chief complaint of possible ALLERGIC reaction to Bactrim. Patient states she had recent start Bactrim and Flexeril. Patient states this morning she woke up her face was feeling itchy hives on her arms. Patient denies any lip tongue swelling difficulty breathing wheezing sneezing she denies any chest pain shortness of breath nausea vomiting abdominal pain or diarrhea. Patient states she has a lot of ALLERGIES such as shellfish and was concerned that it is a Bactrim that is causing this. Patient states she is tolerating Flexeril the past. Remaining review of system negative upon arrival patient appears - Related Data Home Medications Medication Instructions Recorded Confirmed Fluticasone Nasal [place] [Flonase 1 spray EA NOSTRIL DAILY PRN 04/03/18 04/05/18 Nasal [place]] Sertraline [Zoloft] 50 mg PO DAILY 04/03/18 04/05/18 Previous Rx's Medication Instructions Recorded Famotidine [Pepcid] 20 mg PO BID #20 tablet 04/03/18 diphenhydrAMINE [Benadryl] 1 - 2 tab PO Q6HR PRN #30 capsule 04/03/18 predniSONE 50 mg PO DAILY #5 tab 04/03/18 Hydrocortisone Cream 1 applic TOPICAL QID #60 gm 04/05/18 [Hydrocortisone 1% Cream] hydrOXYzine HCL [Atarax] 25 mg PO QID PRN #20 tab 04/05/18 predniSONE [Deltasone] 60 mg PO DAILY #12 tab 04/05/18 Amoxic-Pot Clav 875-125Mg 1 tab PO Q12HR 1 Days #14 tab 07/14/20 [Augmentin 875-125] Fluticasone Nasal [place] [Flonase 2 spr EA NOSTRIL DAILY #1 bottle 07/14/20 Nasal [place]] SUMAtriptan succinate [Imitrex] 25 mg PO ONCE PRN #8 tablet 07/20/20 Famotidine [Pepcid] 20 mg PO BID 4 Days #8 tablet 08/01/20 predniSONE 50 mg PO DAILY 4 Days #4 tab 08/01/20 Allergies Allergy/AdvReac Type Severity Reaction Status Date / Time acetaminophen [From [place]] Allergy Unknown Verified 07/22/20 22:42 bupropion Allergy Rash/Hives Verified 07/22/20 22:42 [From Wellbutrin SR] codeine Allergy Rash/Hives Verified 07/22/20 22:42 hydrocodone [From [place]] Allergy Unknown Verified 07/22/20 22:42 latex Allergy Rash/Hives Verified 07/22/20 22:42 shellfish derived [Shellfish] Allergy Rash/Hives Verified 08/01/20 11:17 Review of Systems ROS Statement: Those systems with pertinent positive or pertinent negative responses have been documented in the HPI. ROS Other: All systems not noted in ROS Statement are negative. Past Medical History Past Medical History: No Reported History Additional Past Medical History / Comment(s): migraines History of Any Multi-Drug Resistant Organisms: None Reported Past Surgical History: Section, Orthopedic Surgery Past Psychological History: Depression Smoking Status: Former smoker Past Alcohol Use History: None Reported Past Drug Use History: Marijuana General Exam - General Exam Comments Initial Comments: General: The patient is awake and alert, in no distress, and does not appear acutely ill. Eye: Pupils are equal, round and reactive to light, extra-ocular movements are intact. No nystagmus. There is normal conjunctiva bilaterally. No signs of icterus. Ears, nose, mouth and throat: There are moist mucous membranes and no oral lesions. no lip or tongue swelling. Neck: The neck is supple, there is no tenderness or JVD. Cardiovascular: There is a regular rate and rhythm. No murmur, rub or gallop is appreciated. Respiratory: Lungs are clear to auscultation, respirations are non-labored, breath sounds are equal. No wheezes, stridor, rales, or rhonchi. Gastrointestinal: Soft, non-distended, non-tender abdomen without masses or organomegaly noted. There is no rebound or guarding present. Musculoskeletal: Normal ROM, no tenderness. Strength 5/5. Sensation intact. Pulses equal bilaterally 2+. Neurological: A&O x 3. CN II-XII intact, There are no obvious motor or sensory deficits. Coordination appears grossly intact. Speech is normal. Skin: Skin is warm and dry and no rashes. Raised round wheels on arms b/l near elbow, face. Psychiatric: Cooperative, appropriate mood & affect, normal judgment. Limitations: no limitations Course Vital Signs 08/01/20 08/01/20 08/01/20 10:39 11:44 12:55 Temperature 98.6 F 98.3 F Pulse Rate 90 91 69 Respiratory 18 20 18 Rate Blood Pressure 141/101 121/70 O2 Sat by Pulse 96 99 97 Oximetry Medical Decision Making - Medical Decision Making 30yo presenting for rash. on new abx, flexeril. instructed pt to stop new medications. to take claritin in AM, benadryl at night, prednisone as prescribed . pt is to return for orall involvement/tongue or lip swelling. pt appears stable, no clinical/PE findings suggestive of anaphylaxis. pt discharged appearing well after monitoring/medications. no progression. Disposition Clinical Impression: Allergic reaction, Drug allergy, antibiotic, Urticaria Disposition: HOME SELF-CARE Condition: Good Instructions (If sedation given, give patient instructions): Urticaria (ED) Additional Instructions: Please use medication as discussed. Please follow-up with family doctor in the next 2 days, recommend avoidance and discontinuation of antibiotic and leno sewer follow-up. Please return to emergency room if the symptoms increase or worsen or for any other concerns. Prescriptions: Famotidine [Pepcid] 20 mg PO BID 4 Days #8 tablet predniSONE 50 mg PO DAILY 4 Days #4 tab Is patient prescribed a controlled substance at d/c from ED?: No Referrals: Jefferson Griffith MD [Primary Care Provider] - 1-2 days Time of Disposition: 12:35
[2020-08-01 13:16] VITALS: BP 121/70; PULSE 69; RESP 18; TEMP 98.3
== END 2020-08-01 12:55 | disposition home or self-care (01) ==
LOC: EC 10:28
DX: L50.9 Urticaria, unspecified (principal); T36.95XA Adverse effect of unspecified systemic antibiotic, initial encounter; F32.9 Major depressive disorder, single episode, unspecified; Z79.899 Other long term (current) drug therapy; Z88.5 Allergy status to narcotic agent; Z88.6 Allergy status to analgesic agent; Z91.013 Allergy to seafood; Z87.891 Personal history of nicotine dependence
CPT/HCPCS: 99283; 96374; 96375 ×2; J1200; J2930

== ENCOUNTER → 2020-08-19 | Outpatient (CLI) | payer OTHER ==
--- NOTE | 2020-08-19 10:48 | MR ---
MRI CERVICAL SPINE and MRI brain: CLINICAL HISTORY: M [age], headaches and neck pain TECHNIQUE: Multiplanar, multisequence imaging of the cervical spine is performed without IV contrast. COMPARISON: CT brain 07/14/2020 FINDINGS: Brain MRI: There is no restricted diffusion. No hemorrhage or hydrocephalus. Brain signal is normal. Corpus callosum, pituitary, cerebellopontine angles, cervical medullary junction are normal, cerebell ar tonsils are at the level of the foramen magnum. There are normal vascular flow voids. Inflammatory changes present within the ethmoid air cells, mucosal thickening in the frontal sinuses. Orbits show symmetric appearance. IMPRESSION: Sinus disease, normal brain MRI Cervical vertebral bodies show preserved height, alignment, and bone marrow signal. Disc spaces are r emarkable for loss of disc signal at C3-4, C5-6, mild posterior disc bulge present at C5-6 causing mi nimal anterior mass effect on the thecal sac. Some mild spondylosis is present at C5-6. There is no e vident spinal stenosis. No foraminal encroachment. Cervical cord signal is normal. IMPRESSION: Mild degenerative disc disease C5-6
== END | disposition home or self-care (01) ==
LOC: RADMRIMAIN 08:47
PROVIDERS: ATTEND Psychiatry & Neurology Neurology
DX: M50.322 Other cervical disc degeneration at C5-C6 level (principal); M54.81 Occipital neuralgia; G43.009 Migraine without aura, not intractable, without status migrainosus
CPT/HCPCS: 70551; 72141

== ENCOUNTER → 2020-09-08 | Outpatient (CLI) | payer OTHER ==
[2020-09-08 10:55] VITALS: BP 139/102; PULSE 91; RESP 18; TEMP 98.4
--- NOTE | 2020-09-08 11:28 | P.PAINCN ---
History of Present Illness - Reason for Consult Consult date: 09/08/20 - History of Present Illness This is a 30 years old female with a chronic history of, severe neck pain and headaches started in May 2020, and she was diagnosed with right-sided occipital neuralgia and she was referred to [facility] pain clinic to have side occipital nerve block, she reported that she had severe neck pain and headache is constant with occasional exacerbation of her symptoms, and her symptoms mainly on the right side, she denies any radicular symptoms to the upper extremity she denies any motor or sensory deficit she denies any change in bowel movement or urination, he had no visual changes, no numbness or tingling sensation in the upper extremities Past Medical History Past Medical History: No Reported History Additional Past Medical History / Comment(s): migraines, NECK PAIN History of Any Multi-Drug Resistant Organisms: None Reported Past Surgical History: Section, Orthopedic Surgery Additional Past Surgical History / Comment(s): LT ANKLE SX Past Anesthesia/Blood Transfusion Reactions: No Reported Reaction Past Psychological History: Depression Smoking Status: Former smoker Past Alcohol Use History: None Reported Additional Past Alcohol Use History / Comment(s): QUIT SMOKING 05/2020 Past Drug Use History: Marijuana Additional Drug Use History / Comment(s): USES MARIJUANA-ABOUT 3 TIMES A WEEK - Past Family History Mother Family Medical History: No Reported History Medications and Allergies Home Medications Medication Instructions Recorded Confirmed Type Cyclobenzaprine [Flexeril] 5 mg PO HS 09/03/20 09/08/20 History DULoxetine HCL [Cymbalta] 30 mg PO DAILY 09/03/20 09/08/20 History Docusate [Colace] 100 mg PO DAILY 09/03/20 09/08/20 History Topiramate [Topamax] 25 mg PO DAILY 09/03/20 09/08/20 History Allergies Allergy/AdvReac Type Severity Reaction Status Date / Time acetaminophen [From Steptoe] Allergy Rash/Hives Verified 09/03/20 15:12 bupropion Allergy Rash/Hives Verified 07/22/20 22:42 [From Wellbutrin SR] codeine Allergy Rash/Hives Verified 07/22/20 22:42 hydrocodone [From Steptoe] Allergy Rash/Hives Verified 09/03/20 15:12 latex Allergy Rash/Hives Verified 07/22/20 22:42 shellfish derived [Shellfish] Allergy Rash/Hives Verified 08/01/20 11:17 Physical Exam Vitals: Vital Signs Temp Pulse Resp BP Pulse Ox 09/08/20 10:50 98.4 F 91 18 139/102 99 Physical Examinations : -Constitutiona : Cooperative , not in acute distress . -HEENT : nech : supple , no Lymphadenopathy , normal thyroid size . : eyes : no ptosis , no icterus, no photophobia . - neurologic : Cranial nerve II to XII intact , no focal neurological deffecit . -psychatric : alert , oriented X 3 , appropriate affect , intact judgment and insight . -Lymphatic : no Lymphadenopathy . - musculoskeltal : Cervical Spine motor stregnth in the deltoid and biceps, normal right side , normal Left side motor stregnth biceps and the wrist extensors normal right side ,normal left side . motor stregnth in the triceps muscle . normal Right side , normal Left side deep tendon reflexes normal at the biceps , normal at Brachioradialis , normal at triceps. cervical facet loading test: Positive on the right side only Spurling test= negative. Neck distraction test= negative Sven sign= negative . Severe tenderness over the right occipital nerve on the right side Lumber spine moter stegnth lower extremities ,thigh and legs 5/5 Right side , 5/5 Left side Results Comments: MRI of the cervical spine= mild degenerative disc disease Assessment and Plan Plan: Assessment and plan=1-right occipital neuralgia. 2-cervicogenic headache. 3-cervical spondylosis. Description could benefit from right-sided occipital nerve block procedure risk and benefits and alternatives discussed with the patient and she agreed with proceeding Time with Patient: Greater than 30 PQRS Measure Charge Sheet Measure #130: Documentation of Current Meds in Medical Chart: Patient's medications documented in chart Measure #226: Tobacco Use: Screen & Cessation Intervention: Pt not a tobacco user Measure #111: Pneumonia Vaccination: Pneumococcal vaccine NOT administered or previously given Measure #47: Advance Care Plan: Advance care planning discussed & documented, pt chose/unable to give Measure #412: Opioid Treatment Agreement: No documentation of signed opioid treatment agreement Measure #408: Opioid Therapy Follow-up Evaluation: Patient had NO f/u eval minimum every 3 months during opioid therapy Measure #317: Preventitive Care & Scrn High Bld Press & F/U: Normal blood pressure, f/u not required Measure #128: Body Mass Index (BMI) Screening & Follow-up: BMI documented ABOVE normal parameters - f/u documented Measure #131: Pain Assessment & Follow-up: Pain positive & plan documented, Follow-up scheduled Measure #431: Unhealthy Alcohol Use Preventative Care & Scrn: Patient not identified as an unhealthy alcohol user PQRS Narrative: Smoking Status Current every day smoker Blood Pressure 139/102 Pain Intensity [Right 4 Occipital] Scale Used Numeric (1 - 10) Hx Alcohol Use (MH) No Home Medications: Ambulatory Orders Cyclobenzaprine [Flexeril] 5 mg PO HS 09/03/20 DULoxetine HCL [Cymbalta] 30 mg PO DAILY 09/03/20 Docusate [Colace] 100 mg PO DAILY 09/03/20 Topiramate [Topamax] 25 mg PO DAILY 09/03/20
== END | disposition home or self-care (01) ==
LOC: PNWHC3 10:34
PROVIDERS: ATTEND Specialist
DX: M54.81 Occipital neuralgia (principal); M47.812 Spondylosis without myelopathy or radiculopathy, cervical region; R51.9 Headache, unspecified; F17.200 Nicotine dependence, unspecified, uncomplicated; Z79.899 Other long term (current) drug therapy; Z79.891 Long term (current) use of opiate analgesic; Z88.5 Allergy status to narcotic agent; Z91.040 Latex allergy status; Z91.013 Allergy to seafood; Z88.8 Allergy status to other drugs, medicaments and biological substances
CPT/HCPCS: 99211

== ENCOUNTER → 2024-01-25 | Outpatient (CLI) | payer OTHER ==
--- NOTE | 2024-01-26 11:20 | MR ---
EXAMINATION TYPE: MR brain wo/w con DATE OF EXAM: 01/25/2024 7:45 PM CLINICAL INDICATION:Female, 33 years old with history of M54.81,G53.009,H54.61; PHH, Migraines right side of head, visual disturbances right eye, COMPARISON: 08/19/2020 TECHNIQUE: Multi planar, multi sequence imaging was performed through the brain including: T1, T2, In version recovery, susceptibility weighted imaging and gradient echo imaging and Diffusion weighted im aging. The patient was then given intravenous contrast and multi planar, T1 fat-saturation images wer e obtained. IV Contrast: 10 cc Gadavist FINDINGS: The allen-white junctions, ventricular system, basal cisterns appear unremarkable. Diffusion-weighted imaging shows no evidence of restricted diffusion to suggest acute/subacute infarct. Intracranial ar terial flow voids are maintained. Midline structures show no abnormality. Few scattered foci of high T2 signal intensity are seen within the periventricular white matter. The susceptibility weighted leo ges do not reveal any evidence for micro-hemorrhage. After administration of gadolinium, no abnormal enhancement is seen. The bone marrow signal is within normal limits. Paranasal sinuses and mastoid air cells: No significant paranasal sinus disease. Visualized orbits: Orbital contents are intact. IMPRESSION: 1. No evidence of intracranial mass, acute/subacute infarct, or abnormal enhancement. 2. Nonspecific white matter changes, possibly secondary to history of migraines less likely demyelina tion.
== END | disposition home or self-care (01) ==
LOC: RADMRIMAIN 19:15
PROVIDERS: ATTEND Psychiatry & Neurology Neurology
DX: G43.009 Migraine without aura, not intractable, without status migrainosus (principal); M54.81 Occipital neuralgia; H54.61 Unqualified visual loss, right eye, normal vision left eye
CPT/HCPCS: 70553; A9585